=== PATIENT | male | born 1955 | race African-American/Black ===

== ENCOUNTER 2024-03-23 12:20 | Emergency (ER) | payer BC ==
[~2024-03-23] VITALS: Ht 172.7 cm; Wt 83.0 kg
[~2024-03-23 12:20] MED LIST: ATOR20TA65 PO; HYDR25TA PO; LISI40TA13; SILD50TA52 PO; TAMS-11 PO
[2024-03-23 12:26] VITALS: O2SAT 96
[2024-03-23 12:36] VITALS: BP 148/91; PULSE 72; RESP 16; TEMP 36.7; O2SAT 97
== END 2024-03-23 14:02 | disposition left against medical advice (07) ==
LOC: ER 12:20
DX: Z53.21 Procedure and treatment not carried out due to patient leaving prior to being seen by health care provider (principal)